=== PATIENT | female | born 1945 | race Caucasian/White ===

== ENCOUNTER 2017-01-26 15:14 | Inpatient (IN) | payer OTHER ==
[2017-01-26 15:17] VITALS: BMI 25.8
[2017-01-26] MEDS ORDERED: TORADOL 30 MG VIAL IM ONE (15:21)
--- NOTE | 2017-01-26 15:22 | DR.GENAD ---
HPI - PCP Primary Care Physician: none - Complaint/Symptoms Chief Complaint:: pt was feeding her cats and tripped over a dog pt is hurting on her right hip at this time - Source History Provided: Patient - Mode of Arrival Mode of Arrival: EMS - Timing Onset of Chief Complaint: 01/26/17 PMH - PMH Past Medical History: No Past Surgical History: Yes Surgical History: Hysterectomy - Family History History of Family Medical Conditions: No - Social History Does patient currently use any type of tobacco product: No Have you used tobacco products in the last 12 months: No Type of Tobacco Use: None Does any household member use tobacco: No Alcohol Use: None Do you use any recreational Drugs:: No Lives With: Family Lives Where: Home - infectious screening In the last 2 months have you had wt loss of >10#?: NO Have you had fever, night sweats or hemotysis?: No Have you traveled outside the country in the last 6 months?: No Isolation: Standard ROS - Review of Systems Eyes: No Symptoms Reported ENTM: No Symptoms Reported Respiratoy: No Symptoms Reported Cardiovascular: No Symptoms Reported Gastrointestinal/Abdominal: No Symptoms Reported Genitourinary: No Symptoms Reported Neurological: No Symptoms Reported Musculoskeletal: Hip, Leg (right, not sure where) Integumentary: No Symptoms Reported Hematologic/Lymphatic: No Symptoms Reported Endocrine: No Symptoms Reported Psychiatric: No Symptoms Reported All Other Systems: Reviewed and Negative PE - Vital Signs Vitals: Temperature 97.5 F Pulse Rate 62 Respiratory Rate 18 Blood Pressure 181/77 O2 Sat by Pulse Oximetry 100 - General Limitations: No Limitations General Appearance: Alert, In No Apparent Distress - Head Head Exam: Normal Inspection, Atraumatic - Eyes Eye exam: Normal Appearance, PERRL, EOMI - ENT ENT Exam: Normal Exam External Ear Exam: Normal External Inspection TM/Canal Exam: Bilateral Normal Nose Exam: Normal Nose Exam Mouth Exam: Normal Inspection Throat Exam: Normal Inspection - Neck Neck Exam: Normal Inspection, Full ROM - Chest Chest Inspection: Normal Inspection - Respiratory Respiratory Exam: Normal Lung Sounds Bilat Respiratory Exam: Bilateral Clear to Auscultation - Cardiovascular Cardiovascular Exam: Regular Rate, Normal Rhythm - Abdominal Exam Abdominal Exam: Normal Inspection Abdominal Tenderness: negative: RUQ, RLQ, LUQ, LLQ, Epigastrium, Suprapubic, Diffuse, Mild, Moderate, Severe, Other - Extremities Extremities Exam: Normal Inspection, Full ROM (patient admits to pain in right hip vs right thigh), Other - Back Back Exam: Normal Inspection, Full ROM - Neurologic Neurological Exam: Alert, Oriented X3, CN II-XII Intact - Psychiatric Psychiatric Exam: Normal Affect - Skin Skin Exam: Warm, Dry, Intact Course - Reevaluation 1st: Unchanged - Consultation Called: 16:30 (Dr Alexander agreed to admit for evaluation on tomorrow) ROR - XRAY XRAY Interpreted by: Radiologist (Hip: There is an incomplete subcapital [id number] right femoral neck) - Diagnosis Discharge Problem: Fracture of femoral neck, right, closed Qualifiers: Encounter type: initial encounter Qualified Code(s): S72.001A - Fracture of unspecified part of neck of right femur, initial encounter for closed fracture - Discharge Plan Condition: Stable - Follow ups/Referrals Follow ups/Referrals: NFD,None [Primary Care Provider] - 3 days - Instructions
[2017-01-26] MEDS ORDERED: TORADOL 30 MG VIAL ONE (15:27)
--- NOTE | 2017-01-26 16:05 | RAD ---
HISTORY: Injury, fall, right hip pain Study: Right hip two views, AP pelvis Comparison: None Findings: The pelvic bones and SI joints are intact. There is a nondisplaced incomplete subcapital fracture of the right femoral neck. The remainder of the visualized femur is intact. IMPRESSION: Incomplete nondisplaced subcapital fracture right femoral neck Reported By:
--- NOTE | 2017-01-26 16:06 | RAD ---
HISTORY: Injury, fall, right hip pain Study: Right femur two view Comparison: None Findings: There is an incomplete nondisplaced subcapital fracture of the right femoral neck. The remainder of the femur is intact. IMPRESSION: Nondisplaced incomplete subcapital fracture right femoral neck Reported By:
[2017-01-26 18:17] LABS: BASOPHILS % (AUTO) 0.4 % (0.2-1.0); EOSINOPHILS % (AUTO) 0.2 % (0.9-2.9); HEMOGLOBIN 14.6 g/dL (12.0-16.0); LYMPHOCYTES # (AUTO) 1.6 X10^3/uL (1.3-2.9); LYMPHOCYTES % (AUTO) 13.5 % (21.0-51.0); MEAN CORPUSCULAR HEMOGLOBIN 28.5 pg (27.0-34.0); MEAN CORPUSCULAR HGB CONC 33.9 g/dL (33.0-35.0); MEAN CORPUSCULAR VOLUME 84.1 fL (80.0-100.0); MONOCYTES # (AUTO) 0.5 x10^3/uL (0.3-0.8); MONOCYTES % (AUTO) 4.4 % (0.0-13.0); NEUTROPHILS # (AUTO) 9.6 x10^3/uL (2.2-4.8); NEUTROPHILS % (AUTO) 81.5 % (42.0-75.0); PLATELET COUNT 199 X10^3/uL (150.0-450.0); RED BLOOD COUNT 5.11 X10^6/uL (3.5-5.4); RED CELL DISTRIBUTION WIDTH 14.2 % (11.6-16.5); WHITE BLOOD COUNT 11.8 X10^3/uL (3.6-10.0)
[2017-01-26 18:29] LABS: ALANINE AMINOTRANSFERASE 47 Units/L (12-78); ALBUMIN 4.1 g/dL (3.4-5.0); ALKALINE PHOSPHATASE 81 Units/L (46-116); ASPARTATE AMINO TRANSFERASE 27 Units/L (15-37); BLOOD UREA NITROGEN 19 mg/dL (7-18); CALCIUM 8.9 mg/dL (8.5-10.1); CARBON DIOXIDE 28.8 mmol/L (21-32); CHLORIDE 103 mmol/L (98-107); COR NA(FOR HYPERGLY) 141 mmol/L (136-145); CREATININE 1.11 mg/dL (0.55-1.02); GLUCOSE 129 mg/dL (65-99); SODIUM 140 mmol/L (136-145); TOTAL PROTEIN 7.7 g/dL (6.4-8.2); eGFR BLACK RACES > 60 (>60); eGFR NON BLACK RACES 51 (>60)
[2017-01-26] MEDS ORDERED: KETALAR ONE (19:01)
[2017-01-26 19:03] LABS: BILIRUBIN,URINE NEGATIVE (NEGATIVE); BLOOD/HEMOGLOBIN,URINE 4+ (NEGATIVE); GLUCOSE, URINE NEGATIVE (NEGATIVE); KETONES,URINE NEGATIVE (NEGATIVE); LEUKOCYTE ESTERASE ,URINE NEGATIVE (NEGATIVE); NITRITES,URINE NEGATIVE (NEGATIVE); PROTEIN,URINE NEGATIVE (NEGATIVE); UROBILINOGEN,URINE NORMAL (NORMAL)
[2017-01-26] MEDS ORDERED: MARCAINE/EPINEPHRINE ONE (19:05)
[2017-01-26 19:20] LABS: APPEARANCE,URINE CLEAR (CLEAR); BACTERIA,URINE TRACE /HPF (NEGATIVE); COLOR,URINE YELLOW (YELLOW); MUCUS,URINE FEW /HPF (NEGATIVE); SQUAMOUS EPITHELIAL CELL,UR RARE /HPF (NEGATIVE)
[2017-01-26] MEDS ORDERED: VERSED ONE (19:25)
[2017-01-26] MEDS ORDERED: NS 500 ML IV 500 ML IV ONE (19:48)
[2017-01-27] MEDS ORDERED: KETALAR ONE (10:11)
[2017-01-27 10:27] LABS: ALANINE AMINOTRANSFERASE 59 Units/L (12-78); ALBUMIN 3.6 g/dL (3.4-5.0); ALKALINE PHOSPHATASE 76 Units/L (46-116); ASPARTATE AMINO TRANSFERASE 46 Units/L (15-37); BLOOD UREA NITROGEN 18 mg/dL (7-18); CALCIUM 9.3 mg/dL (8.5-10.1); CARBON DIOXIDE 27.4 mmol/L (21-32); CHLORIDE 106 mmol/L (98-107); COR NA(FOR HYPERGLY) 141 mmol/L (136-145); GLUCOSE 148 mg/dL (65-99); SODIUM 140 mmol/L (136-145); TOTAL PROTEIN 7.1 g/dL (6.4-8.2); eGFR BLACK RACES > 60 (>60); eGFR NON BLACK RACES 52 (>60)
[2017-01-27 10:28] LABS: BASOPHILS % (AUTO) 0.4 % (0.2-1.0); EOSINOPHILS # (AUTO) 0.1 x10^3/uL (0.0-0.2); EOSINOPHILS % (AUTO) 0.8 % (0.9-2.9); HEMATOCRIT 42.7 % (36.0-47.0); HEMOGLOBIN 14.8 g/dL (12.0-16.0); LYMPHOCYTES # (AUTO) 1.4 X10^3/uL (1.3-2.9); LYMPHOCYTES % (AUTO) 15.1 % (21.0-51.0); MEAN CORPUSCULAR HEMOGLOBIN 29.3 pg (27.0-34.0); MEAN CORPUSCULAR HGB CONC 34.7 g/dL (33.0-35.0); MEAN CORPUSCULAR VOLUME 84.5 fL (80.0-100.0); MEAN PLATELET VOLUME 8.7 fL (7.4-11.0); MONOCYTES # (AUTO) 0.5 x10^3/uL (0.3-0.8); MONOCYTES % (AUTO) 5.8 % (0.0-13.0); NEUTROPHILS # (AUTO) 7.3 x10^3/uL (2.2-4.8); NEUTROPHILS % (AUTO) 77.9 % (42.0-75.0); PLATELET COUNT 137 X10^3/uL (150.0-450.0); RED BLOOD COUNT 5.05 X10^6/uL (3.5-5.4); RED CELL DISTRIBUTION WIDTH 14.2 % (11.6-16.5); WHITE BLOOD COUNT 9.4 X10^3/uL (3.6-10.0)
--- NOTE | 2017-01-27 10:34 | RAD ---
HISTORY: Preop. Study: Portable chest. Comparison: None available. Findings: The trachea is midline. The cardiac silhouette is unremarkable. The lungs are clear without focal infiltrate or effusion. The bony thorax is unremarkable. IMPRESSION: 1. No acute cardiopulmonary disease. Reported By:
[2017-01-27 10:44] LABS: PLATELET MORPHOLOGY COMMENT NORMAL (NORMAL)
[2017-01-27] MEDS ORDERED: MARCAINE 0.25% WITH EPI IJ ONE ×2 (12:41→14:39)
[2017-01-27] MEDS ORDERED: NS 50 ML IV + SPIKE MINIBAG* 50 ML IV ONE (14:45)
[2017-01-27] MEDS ORDERED: D5 LR 1000 ML 1,000 ML IV ONE (14:45)
[2017-01-27] MEDS ORDERED: ANCEF VIAL 1 GM ONE (14:45)
[2017-01-27] MEDS ORDERED: XYLOCAINE 2 % (PLAIN) ONE (15:01)
[2017-01-27] MEDS ORDERED: VERSED ONE (15:01)
[2017-01-27] MEDS ORDERED: DIPRIVAN VIAL ONE (15:01)
[2017-01-27] MEDS ORDERED: EPHEDRINE SULFATE INJ ONE (15:01)
[2017-01-27] MEDS ORDERED: ZOFRAN INJ 4 MG VIAL ONE (15:01)
[2017-01-27] MEDS ORDERED: MARCAINE 0.5% 52 ML, NS 1000 ML 348 ML IJ PRN ×2 (15:22)
[2017-01-27] MEDS ORDERED: Q PUMP EPI ONE (15:30)
[2017-01-27] MEDS ORDERED: NS IRRIGATION 3000 ML 3,000 ML with BACITRACIN VIAL 50,000 UNT IR ONE ×4 (16:04)
[2017-01-27] MEDS ORDERED: NS IRRIGATION 1000 ML 1,000 ML with BACITRACIN VIAL 50,000 UNT IR ONE ×2 (16:04)
[2017-01-27] MEDS ORDERED: BENADRYL INJ 50 MG VIAL IVP PRN (16:55)
[2017-01-27] MEDS ORDERED: PHENERGAN INJ 25 MG IVP PRN (16:55)
[2017-01-27] MEDS ORDERED: REGLAN INJ 10 MG VIAL IVP PRN (16:55)
[2017-01-27] MEDS ORDERED: ZOFRAN INJ 4 MG VIAL IVP PRN ×2 (16:55→21:46)
[2017-01-27] MEDS ORDERED: DILAUDID INJ IVP PRN (16:55)
[2017-01-27] MEDS: D5 NS 1000 ML 1,000 ML IV SCH (17:53)
[2017-01-27] MEDS: MORPHINE SULFATE PCA 30 MG IVP PRN ×2 (21:00→23:46)
--- NOTE | 2017-01-27 22:46 | RAD ---
HISTORY: Postop Study: Right hip series Comparison: 01/26/2017 Findings: There is a metallic prosthesis in the right hip with the acetabular and femoral portions of the pros thesis in good position. There is subcutaneous air and edema in the soft tissues lateral to the hip with skin clips laterally. No fracture or dislocation is seen. The pelvis is intact. Impression: Status post total right hip replacement with postop changes as above. Reported By:
[2017-01-27] MEDS: ANCEF VIAL 1 GM 2 GM in NS 100 ML IV 100 ML IV SCH (23:02)
[2017-01-28] MEDS: ANCEF VIAL 1 GM 2 GM in NS 100 ML IV 100 ML IV SCH ×3 (06:08→21:00)
[2017-01-28 06:22] LABS: BASOPHILS % (AUTO) 0.3 % (0.2-1.0); EOSINOPHILS # (AUTO) 0.1 x10^3/uL (0.0-0.2); EOSINOPHILS % (AUTO) 1.1 % (0.9-2.9); HEMATOCRIT 38.4 % (36.0-47.0); LYMPHOCYTES # (AUTO) 1.4 X10^3/uL (1.3-2.9); MEAN CORPUSCULAR HEMOGLOBIN 28.6 pg (27.0-34.0); MEAN CORPUSCULAR VOLUME 84.3 fL (80.0-100.0); MEAN PLATELET VOLUME 8.5 fL (7.4-11.0); MONOCYTES # (AUTO) 0.5 x10^3/uL (0.3-0.8); MONOCYTES % (AUTO) 6.5 % (0.0-13.0); NEUTROPHILS # (AUTO) 5.6 x10^3/uL (2.2-4.8); NEUTROPHILS % (AUTO) 74.1 % (42.0-75.0); PLATELET COUNT 158 X10^3/uL (150.0-450.0); RED BLOOD COUNT 4.55 X10^6/uL (3.5-5.4); RED CELL DISTRIBUTION WIDTH 14.1 % (11.6-16.5); WHITE BLOOD COUNT 7.6 X10^3/uL (3.6-10.0)
[2017-01-28 06:37] LABS: BLOOD UREA NITROGEN 13 mg/dL (7-18); CALCIUM 8.3 mg/dL (8.5-10.1); CARBON DIOXIDE 26.1 mmol/L (21-32); CHLORIDE 107 mmol/L (98-107); COR NA(FOR HYPERGLY) 142 mmol/L (136-145); CREATININE 0.95 mg/dL (0.55-1.02); GLUCOSE 160 mg/dL (65-99); SODIUM 141 mmol/L (136-145); eGFR BLACK RACES > 60 (>60); eGFR NON BLACK RACES > 60 (>60)
[2017-01-28] MEDS ORDERED: LOVENOX INJ 30 MG SYR SC SCH (09:00)
[2017-01-28] MEDS: OxyCONTIN CR 20 MG PO SCH ×3 (10:48→20:50)
[2017-01-28] MEDS: D5 NS 1000 ML 1,000 ML IV SCH (15:17)
[2017-01-28] MEDS ORDERED: BENADRYL INJ 50 MG VIAL IVP ONE (17:55)
[2017-01-29] MEDS: ANCEF VIAL 1 GM 2 GM in NS 100 ML IV 100 ML IV SCH ×3 (05:44→21:13)
[2017-01-29 06:24] LABS: BLOOD UREA NITROGEN 12 mg/dL (7-18); CALCIUM 8.2 mg/dL (8.5-10.1); CARBON DIOXIDE 27.6 mmol/L (21-32); CHLORIDE 106 mmol/L (98-107); COR NA(FOR HYPERGLY) 140 mmol/L (136-145); CREATININE 0.95 mg/dL (0.55-1.02); GLUCOSE 150 mg/dL (65-99); SODIUM 139 mmol/L (136-145); eGFR BLACK RACES > 60 (>60); eGFR NON BLACK RACES > 60 (>60)
[2017-01-29 07:28] LABS: BASOPHILS # (AUTO) 0.1 X10^3/uL (0.0-0.1); BASOPHILS % (AUTO) 0.6 % (0.2-1.0); EOSINOPHILS # (AUTO) 0.2 x10^3/uL (0.0-0.2); EOSINOPHILS % (AUTO) 1.9 % (0.9-2.9); HEMATOCRIT 37.5 % (36.0-47.0); HEMOGLOBIN 12.7 g/dL (12.0-16.0); LYMPHOCYTES # (AUTO) 1.6 X10^3/uL (1.3-2.9); LYMPHOCYTES % (AUTO) 18.4 % (21.0-51.0); MEAN CORPUSCULAR HEMOGLOBIN 28.7 pg (27.0-34.0); MEAN CORPUSCULAR HGB CONC 33.9 g/dL (33.0-35.0); MEAN CORPUSCULAR VOLUME 84.8 fL (80.0-100.0); MEAN PLATELET VOLUME 8.1 fL (7.4-11.0); MONOCYTES # (AUTO) 0.6 x10^3/uL (0.3-0.8); MONOCYTES % (AUTO) 6.6 % (0.0-13.0); NEUTROPHILS # (AUTO) 6.2 x10^3/uL (2.2-4.8); NEUTROPHILS % (AUTO) 72.5 % (42.0-75.0); RED BLOOD COUNT 4.43 X10^6/uL (3.5-5.4); RED CELL DISTRIBUTION WIDTH 14.1 % (11.6-16.5); WHITE BLOOD COUNT 8.6 X10^3/uL (3.6-10.0)
[2017-01-29] MEDS: OxyCONTIN CR 20 MG PO SCH ×2 (08:10→21:14)
[2017-01-29] MEDS: DILAUDID INJ IVP PRN (14:10)
[2017-01-29] MEDS: LR 1000 ML IV 1,000 ML IV SCH (14:11)
[2017-01-29] MEDS ORDERED: BENADRYL INJ 50 MG VIAL IVP ONE (16:37)
[2017-01-30] MEDS: LR 1000 ML IV 1,000 ML IV SCH ×5 (00:53→22:56)
[2017-01-30] MEDS: BENADRYL CAP/TAB 25 MG PO PRN ×3 (02:28→19:55)
[2017-01-30] MEDS: ANCEF VIAL 1 GM 2 GM in NS 100 ML IV 100 ML IV SCH ×3 (05:28→21:36)
[2017-01-30 05:41] LABS: BLOOD UREA NITROGEN 8 mg/dL (7-18); CALCIUM 8.3 mg/dL (8.5-10.1); CARBON DIOXIDE 26.5 mmol/L (21-32); CHLORIDE 106 mmol/L (98-107); COR NA(FOR HYPERGLY) 140 mmol/L (136-145); CREATININE 0.95 mg/dL (0.55-1.02); GLUCOSE 139 mg/dL (65-99); SODIUM 139 mmol/L (136-145); eGFR BLACK RACES > 60 (>60); eGFR NON BLACK RACES > 60 (>60)
[2017-01-30 05:42] LABS: BASOPHILS % (AUTO) 0.3 % (0.2-1.0); EOSINOPHILS # (AUTO) 0.1 x10^3/uL (0.0-0.2); EOSINOPHILS % (AUTO) 1.8 % (0.9-2.9); HEMATOCRIT 31.7 % (36.0-47.0); HEMOGLOBIN 10.9 g/dL (12.0-16.0); LYMPHOCYTES # (AUTO) 1.6 X10^3/uL (1.3-2.9); LYMPHOCYTES % (AUTO) 19.7 % (21.0-51.0); MEAN CORPUSCULAR HGB CONC 34.5 g/dL (33.0-35.0); MEAN CORPUSCULAR VOLUME 83.9 fL (80.0-100.0); MONOCYTES # (AUTO) 0.6 x10^3/uL (0.3-0.8); NEUTROPHILS # (AUTO) 5.6 x10^3/uL (2.2-4.8); NEUTROPHILS % (AUTO) 71.2 % (42.0-75.0); PLATELET COUNT 138 X10^3/uL (150.0-450.0); RED BLOOD COUNT 3.78 X10^6/uL (3.5-5.4); RED CELL DISTRIBUTION WIDTH 13.9 % (11.6-16.5); WHITE BLOOD COUNT 7.9 X10^3/uL (3.6-10.0)
[2017-01-30] MEDS: OxyCONTIN CR 20 MG PO SCH ×2 (09:28→21:35)
[2017-01-30 10:07] LABS: PLATELET COUNT 134 X10^3/uL (150.0-450.0)
[2017-01-30] MEDS: DILAUDID INJ IVP PRN (19:55)
[2017-01-31] MEDS: BENADRYL CAP/TAB 25 MG PO PRN ×3 (02:27→21:42)
[2017-01-31] MEDS: LR 1000 ML IV 1,000 ML IV SCH ×4 (02:28→23:30)
[2017-01-31] MEDS: DILAUDID INJ IVP PRN ×3 (05:17→21:35)
[2017-01-31] MEDS: ANCEF VIAL 1 GM 2 GM in NS 100 ML IV 100 ML IV SCH ×4 (05:19→21:42)
[2017-01-31] MEDS: OxyCONTIN CR 20 MG PO SCH (09:22)
[2017-01-31] MEDS: COLACE CAP 100 MG PO SCH (16:00)
[2017-01-31] MEDS: NORCO 7.5/325 MG TAB PO PRN (16:00)
[2017-01-31] MEDS ORDERED: MIRALAX POWDER (1 DOSE 17GM) PO ONE (16:00)
[2017-02-01] MEDS: ANCEF VIAL 1 GM 2 GM in NS 100 ML IV 100 ML IV SCH (06:04)
[2017-02-01] MEDS: COLACE CAP 100 MG PO SCH (08:27)
[2017-02-01] MEDS: NORCO 7.5/325 MG TAB PO PRN (08:28)
[2017-02-01 14:34] VITALS: BP 160/70
== END 2017-02-01 14:25 | disposition home health service (06) | DRG 470 ==
LOC: ER 16:50 → MED/SURG 17:47
PROVIDERS: ADMIT Obstetrics & Gynecology Obstetrics; ATTEND Obstetrics & Gynecology Obstetrics
PROC: 0SRR01A Replacement of Right Hip Joint, Femoral Surface with Metal Synthetic Substitute, Uncemented, Open Approach (ICD-10-PCS; principal; 2017-01-27 15:15)
DX: S72.011A Unspecified intracapsular fracture of right femur, initial encounter for closed fracture (principal); W01.0XXA Fall on same level from slipping, tripping and stumbling without subsequent striking against object, initial encounter; Y92.098 Other place in other non-institutional residence as the place of occurrence of the external cause
CPT/HCPCS: 36415; 62326; 71010; 73501; 73552; 80048; 80053; 81001; 85025; 85610; 86140; 86850; 86900; 86901; 87641; 93005; 93010; 94762; 96374; 97535; 99100; 99284; A4222; S0020; J0690; J1200; J1650; J1885; J2001; J2250; J2271; J2405; J3490; J7120

== ENCOUNTER → 2017-03-10 | Outpatient (CLI) | payer OTHER ==
--- NOTE | 2017-03-10 13:28 | RAD ---
HISTORY: Follow up fracture Study: Right femur two view Comparison: January 26, 2017 Findings: The patient is status post right hip hemiarthroplasty. Position and alignment is anatomic. There is no evidence for periprosthetic fracture or loosening. IMPRESSION: Status post right hip hemiarthroplasty in good position without acute findings Reported By:
== END ==
LOC: RAD 12:29
PROVIDERS: ATTEND Specialist
DX: S72.011S Unspecified intracapsular fracture of right femur, sequela (principal); X58.XXXS Exposure to other specified factors, sequela; Z98.890 Other specified postprocedural states
CPT/HCPCS: 73552